=== PATIENT | female | born 1945 | race American Indian/Alaskan Native ===

== ENCOUNTER 2016-07-30 17:54 | Emergency (ER) | payer MEDICARE ==
[2016-07-30 19:34] LABS: Hematocrit 37.7 % (30.3-42.9); Hemoglobin 12.4 gm/dl (10.1-14.3); Mean Corpuscular HGB Conc 33 % (30-34); Mean Corpuscular Hemoglobin 30 pg (28-32); Mean Corpuscular Volume 91 fl (79-97); Platelet Count 219 K/mm3 (140-440); Red Blood Count 4.14 M/mm3 (3.65-5.03); Red Cell Distribution Width 15.1 % (13.2-15.2); White Blood Count 4.1 K/mm3 (4.5-11.0)
[2016-07-30 19:47] LABS: Anion Gap 16 mmol/L; Blood Urea Nitrogen 15 mg/dL (7-17); Calcium 9.4 mg/dL (8.4-10.2); Carbon Dioxide 26 mmol/L (22-30); Chloride 104.7 mmol/L (98-107); Glucose 80 mg/dL (65-100); Potassium 4.5 mmol/L (3.6-5.0); Sodium 142 mmol/L (137-145)
[2016-07-30 20:27] LABS: Bilirubin,Urine NEG (Negative); Blood,Urine NEG (Negative); Ketones,Urine NEG (Negative); Leukocyte Esterase,Urine NEG (Negative); Nitrite,Urine NEG (Negative); Protein,Urine <15 mg/dL mg/dL (Negative); Urobilinogen,Urine < 2.0 mg/dL (<2.0); WBC,Urine < 1.0 /HPF (0.0-6.0)
[2016-07-30] MEDS: TYLENOL PO ONE ×2 (21:36→23:07)
--- NOTE | 2016-07-30 22:51 | Cat Scan Report ---
FINAL REPORT EXAM: CT CERVICAL SPINE WO CON HISTORY: neck injury from fall/head injury TECHNIQUE: CT imaging is acquired through the cervical spine without contrast. Transaxial, coronal and sagittal reformations are provided. PRIORS: None. FINDINGS: The cervical spine is intact. Vertebral body heights are preserved. No acute fracture or listhesis. Atlanto-dens interval and odontoid process are intact. Intervertebral disc spaces are mildly narrowed most significantly at C5-C6 and C6-C7 with associated endplate spondylosis.. No perivertebral soft tissue swelling or hematoma identified. Limited soft tissue exam of the visualized neck is remarkable for carotid calcification. IMPRESSION: No acute cervical spine fracture identified. Correlate with physical exam and follow up as warranted.
--- NOTE | 2016-07-30 22:51 | Cat Scan Report ---
FINAL REPORT EXAM: CT HEAD/BRAIN WO CON HISTORY: neck injury from fall TECHNIQUE: CT imaging acquired through the head without intravenous contrast. Transaxial reformations are provided. PRIORS: None. FINDINGS: The ventricles, cisterns and sulci are within normal limits. No intraparenchymal or extra-axial mass, hemorrhage, or mass effect. Wiggins and white-matter differentiation is within normal limits for patient age. Normal spherical shape of the globes. Paranasal sinuses and mastoid air cells are clear. No skull or facial fracture visualized. IMPRESSION: No acute intracranial abnormality.
[2016-07-30] MEDS ORDERED: TYLENOL ONE (23:04)
[2016-07-31 02:04] VITALS: BP 139/77
--- NOTE | 2016-07-31 03:30 | Emergency Department Report ---
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 Patient states she was at home in her kitchen when she was standing and slipped and fell on her back and hit her head. Patient denies any loss of consciousness, dizziness, bleeding. Patient states she was able to get up from the fall after the incident. Patient denies any symptoms prior to fall Patient denies fever/chills/nausea/vomiting/abdominal pain/chest pain or any other problems. ED Past Medical Hx - Past Medical History Hx GERD: Yes Hx Psychiatric Treatment: Yes (anxiety) Additional medical history: parkinson's disease - Surgical History Additional Surgical History: left knee replacement - Social History Smoking Status: Never Smoker Substance Use Type: None - Medications Home Medications: Home Medications Medication Instructions Recorded Confirmed Last Taken Type Acetaminophen [Acetaminophen TAB] 500 mg PO Q6HR #30 tablet 07/31/16 Unknown Rx Cyclobenzaprine [Flexeril] 10 mg PO QHS #20 tablet 07/31/16 Unknown Rx ED Review of Systems ROS: Stated complaint: FALL/HEAD PAIN Other details as noted in HPI Constitutional: denies: chills, fever, weakness Eyes: denies: eye pain, eye discharge, vision change ENT: denies: ear pain, throat pain, dental pain, hearing loss Respiratory: denies: cough, shortness of breath, wheezing Cardiovascular: denies: chest pain, palpitations Endocrine: no symptoms reported Gastrointestinal: denies: abdominal pain, nausea, vomiting, diarrhea, constipation Genitourinary: denies: urgency, dysuria, discharge Musculoskeletal: denies: back pain, joint swelling, arthralgia Skin: denies: rash, lesions Neurological: headache (at the back of the head, now resolved). denies: weakness, numbness, paresthesias Psychiatric: denies: anxiety, depression Hematological/Lymphatic: denies: easy bleeding, easy bruising Physical Exam - Physical Exam Vital Signs: Vital Signs 07/30/16 07/30/16 07/30/16 18:15 21:02 23:07 Temperature 98.2 F 98.7 F Pulse Rate 63 59 L Respiratory 18 18 18 Rate Blood Pressure 149/74 141/76 Blood Pressure [Left] O2 Sat by Pulse 100 100 Oximetry 07/31/16 07/31/16 02:03 02:05 Temperature 98.6 F Pulse Rate 61 Respiratory 20 20 Rate Blood Pressure Blood Pressure 139/77 [Left] O2 Sat by Pulse 100 100 Oximetry Physical Exam: GENERAL: Alert and oriented x3, no apparent distress, Normal Gait, atraumatic. HEAD: Head is normocephalic and a-traumatic. Nontender to palpation. No bleeding. No contusion or abrasion seen EYES: Extra ocular muscles are intact. Pupils are equal, round, and reactive to light and accommodation. NOSE: Nose symetrical, Nontender,Nares appeared normal. NECK: Supple. Non edematous, No carotid bruits. No lymphadenopathy or thyromegaly. No C-spine made no tenderness LUNGS: Symetrical with respiration, No wheezing, no rales or crackles, CTAB. HEART: S1, S2 present, regular rate and rhythm without murmur, no rubs, no gallops. ABDOMEN: No organomegaly was noted,Positive bowel sounds, soft, and non- distended. . Nontender to palpation on all Quadrants, NO CVA tenderness. EXTREMITIES/MUSCULOSKELETAL: No cyanosis, clubbing, rash, lesions or edema. Full ROM bilaterally. UE/LE Pulses 2+ bilaterally. LE and UE 5+ strength bilaterally NEUROLOGIC: No focal Deficit, Cranial nerves II through XII are grossly intact. No loss of sensation, PSYCHIATRIC: Mood is congruent with affect, denies suicidal or homicidal ideations. SKIN: Warm and dry, No lesions, No ulceration or induration present. ED Course Vital Signs 07/30/16 07/30/16 07/30/16 18:15 21:02 23:07 Temperature 98.2 F 98.7 F Pulse Rate 63 59 L Respiratory 18 18 18 Rate Blood Pressure 149/74 141/76 Blood Pressure [Left] O2 Sat by Pulse 100 100 Oximetry 07/31/16 07/31/16 02:03 02:05 Temperature 98.6 F Pulse Rate 61 Respiratory 20 20 Rate Blood Pressure Blood Pressure 139/77 [Left] O2 Sat by Pulse 100 100 Oximetry ED Medical Decision Making - Lab Data Result diagrams: 07/30/16 19:18 07/30/16 19:18 - Radiology Data Radiology results: report reviewed, image reviewed FINAL REPORT EXAM: CT HEAD/BRAIN WO CON HISTORY: neck injury from fall TECHNIQUE: CT imaging acquired through the head without intravenous contrast. Transaxial reformations are provided. PRIORS: None. FINDINGS: The ventricles, cisterns and sulci are within normal limits. No intraparenchymal or extra-axial mass, hemorrhage, or mass effect. Wiggins and white-matter differentiation is within normal limits for patient age. Normal spherical shape of the globes. Paranasal sinuses and mastoid air cells are clear. No skull or facial fracture visualized. IMPRESSION: No acute intracranial abnormality. Transcribed By: MB Dictated By: KENNY MARCUM MD Electronically Authenticated By: KENNY MARCUM MD Signed Date/Time: 07/30/16 2217 - Medical Decision Making 70-year-old female presents status post fall. ED course: Patient received Tylenol and Flexeril in the ED. CT scan of head and C-spine shows normal results see above. CBC, BMP, urine all normal Discussed findings with patient and her daughter discussed with patient to follow up with primary care physician. Discussed with patient if any new symptoms arise to return to ED. Patient is alert and oriented 3 vital signs are stable patient is in no acute distress. Critical care attestation.: If time is entered above; I have spent that time in minutes in the direct care of this critically ill patient, excluding procedure time. ED Disposition Clinical Impression: Fall Qualifiers: Encounter type: initial encounter Qualified Code(s): W19.XXXA - Unspecified fall, initial encounter Minor head injury without loss of consciousness Qualifiers: Encounter type: initial encounter Qualified Code(s): S09.90XA - Unspecified injury of head, initial encounter Disposition: DISCHARGED TO HOME OR SELFCARE Is pt being admited?: No Does the pt Need Aspirin: No Condition: Stable Instructions: Fall Prevention for Older Adults (ED) Additional Instructions: Follow-up with your primary care physician S3 to 5 days. If headache persists follow up with your neurologist. If any new symptoms arise or worsen symptoms please return to ED Prescriptions: Cyclobenzaprine [Flexeril] 10 mg PO QHS #20 tablet Acetaminophen [Acetaminophen TAB] 500 mg PO Q6HR #30 tablet Referrals: PRIMARY MD KALI [Primary Care Provider] - 3-5 Days Forms: Accompanied Note Time of Disposition: 04:03
[2016-07-31] MEDS ORDERED: FLEXERIL PO ONE (04:04)
== END 2016-07-31 04:45 | disposition home or self-care (01) ==
LOC: ED 17:54
DX: S09.90XA Unspecified injury of head, initial encounter (principal); F41.9 Anxiety disorder, unspecified; G20 Parkinson's disease; K21.9 Gastro-esophageal reflux disease without esophagitis; W19.XXXA Unspecified fall, initial encounter; Y93.89 Activity, other specified; Y99.8 Other external cause status; Y92.000 Kitchen of unspecified non-institutional (private) residence as the place of occurrence of the external cause
CPT/HCPCS: 36415; 70450; 72125; 80048; 81001; 85027